=== PATIENT | male | born 2000 | race Caucasian/White ===

== ENCOUNTER 2020-01-28 16:05 | Emergency (ER) | payer BC, OTHER ==
[~2020-01-28] VITALS: Ht 188 cm; Wt 86.2 kg
[2020-01-28 18:08] LABS: ABSOLUTE NEUTROPHILS 5.2 thou/uL (1.4-8.2); BASOPHILS 0.9 % (0.0-2.0); HEMATOCRIT 48.6 % (42.0-52.0); HEMOGLOBIN 16.8 gm/dL (14.0-18.0); LYMPHOCYTES 24.8 % (24.0-44.0); MCH 31.5 pg (26.0-34.0); MCHC 34.7 g/dL (28.0-37.0); MCV 90.9 fL (80.0-100.0); MONOCYTES 10.6 % (1.0-8.0); PLATELET COUNT 171 thou/uL (150-400); POLYS 59.7 % (36.0-66.0); RBC 5.35 mil/uL (4.50-6.00); RDW 12.3 % (10.5-14.5); WBC 8.8 thou/uL (4.0-11.0)
[2020-01-28 18:17] LABS: CALCIUM 9.2 mg/dL (8.5-10.1); CREATININE 0.9 mg/dL (0.7-1.3); POTASSIUM 4.1 mmol/L (3.5-5.1)
[2020-01-28 18:24] LABS: ALBUMIN 4.2 g/dL (3.4-5.0); TOTAL BILIRUBIN 1.4 mg/dL (0.2-1.0); TOTAL PROTEIN 8.1 g/dL (6.4-8.2)
[2020-01-28 20:04] VITALS: BP 126/80
--- NOTE | 2020-01-29 08:06 | EKG ---
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: [facility] : 2000 Requested By: Katlyn Sepulveda Order Number: [id number] MD: Jaden Llanes Measurements Intervals [place] Rate: 55 P: 69 CO: 129 QRS: 41 QRSD: 100 T: 44 QT: 410 QTc: 393 Interpretive Statements Sinus rhythm ST elev, probable normal early repol pattern No previous ECG available for comparison Electronically Signed On 01-29-2020 8:06:18 CDT by Jaden Llanes [email or web address] <ELECTRONICALLY SIGNED> By: Jaden Llanes MD, [facility] 01/29/20 0806 21 21 Jaden Llanes MD, [facility] /EPI
== END 2020-01-28 20:03 | disposition home or self-care (01) ==
LOC: ER 16:05
PROVIDERS: Physician Assistant
DX: R10.11 Right upper quadrant pain (principal); R07.89 Other chest pain; R10.12 Left upper quadrant pain; R07.81 Pleurodynia; F17.210 Nicotine dependence, cigarettes, uncomplicated